=== PATIENT | male | born 1965 | race Caucasian/White ===

== ENCOUNTER 2021-03-15 15:58 | Inpatient (IN) | payer OTHER ==
[~2021-03-15] VITALS: Ht 182.9 cm; Wt 93.0 kg
--- NOTE | 2021-03-15 16:28 | NUR ---
SE RECIBE PTE AMBULANDO ALERTA Y ORIENTADO X3 QUIEN REFIERE PRESENTAR DOLOR ABDOMINAL DESDE HOY CON MAS DE 7 EPISODIOS DE VOMITOS. SE UBICA A PTE EN AREA DE OBSERVACION PARA EVALUACION MEDICA.
--- NOTE | 2021-03-15 18:13 | NUR ---
PTE MASCULINO ALERTA Y ORIENTADO EN LAS CHIRAG ESFERAS ES EVALUADO POR . .THERESE ORIENTA SOBRE ORDENES DE TX REFIERE COMPRENDER. CANALIZA VENA Y COLECTA MUESTRAS DE LABORATORIO, BAJO MEDIDAS ASEPTICAS. SE ENTREGA ENVASES PARA COLECCION DE MUESTRAS U/A Y FECAL LEUKOCITES, SE ORIENTA Y REFIERE COMPRENDER. SE ADMINISTRAN MEDICAMENTSO, BAJO MEDIDAS ASEPTICAS.
--- NOTE | 2021-03-15 23:48 | NUR ---
PTE ALERTA Y ORIENTADO X 3 ESFERAS EN ANJEL CON BARANDAS ELEVADAS,EN COMPANIA DE FAMILIAR,AREA DE VENOPUNCION PATENTE Y KAREEM DE EDEMA CON FLUIDOS DE MANTENIMIENTO.PTE REFIERE NO TOMARA MUESTRA DE FECAL LEUK.SE NOTIFICA A DR LEMON,PENDIENTE A RE-EVALUAR.
--- NOTE | 2021-03-16 05:58 | NUR ---
SE CHRISTOPHE MUESTRAS PENDIENTES BAJO MEDIDAS ASEPTICAS Y BETTE ORDEN MEDICA.
--- NOTE | 2021-03-16 07:23 | NUR ---
PACIENTE ALERTA Y ORIENTADO EN RUEPRTO CHIRAG ESFERAS, PRESENTA BUEN PATRON RESPIRATORIO Y KAREEM DE DOLOR. CANALIZADO EN BRAZO LT PATENTE Y KAREEM DE S/S DE FLEBITIS E INFILTRACION, RECIBIENDO 0.9% NSS A 180 ML/HR. PENDIENTE QUE PACIENTE EVACUE PARA MUESTRA DE FECAL LEUKOCYTES. PENDIENTE EVALUACION DE MEDICINA INTERNA CON DR HERNANDEZ POR HUSSAIN VS CKD.
== END 2021-03-18 19:27 | disposition home or self-care (01) | DRG 694 ==
LOC: ER 15:58 → SEC-K 03-16 10:05 → MEDI 03-16 14:20
PROVIDERS: ADMIT Internal Medicine; ATTEND Internal Medicine
DX: N20.2 Calculus of kidney with calculus of ureter (principal); N13.8 Other obstructive and reflux uropathy; N17.8 Other acute kidney failure; I10 Essential (primary) hypertension

== ENCOUNTER 2021-05-03 05:00 | Day surgery (SDC) | payer OTHER ==
[~2021-05-03 05:00] MED LIST: NIFEDIPINE ER30 MG PO; PROTONIX40 MG PO; TAMS0.4C PO
== END 2021-05-03 13:45 | disposition home or self-care (01) ==
LOC: CIR.AMB 05:00
PROVIDERS: ATTEND Urology
DX: N13.2 Hydronephrosis with renal and ureteral calculous obstruction (principal); Z20.822 Contact with and (suspected) exposure to COVID-19